=== PATIENT | female | born 1965 | race Caucasian/White ===

== ENCOUNTER 2022-08-16 09:01 | Outpatient (CLI) | payer OTHER, SELFPAY ==
[2022-08-16 12:45] LABS: Albumin* 4.6 g/dL (3.3-5.0); Chloride* 98 mmol/L (96-114)
[2022-08-16 12:46] LABS: Potassium* 4.1 mmol/L (3.6-5.1); Sodium* 135 mmol/L (135-149)
[2022-08-16 12:48] LABS: Bilirubin Total* 0.8 mg/dL (0.1-1.5); Carbon Dioxide* 26 mmol/L (20-32); Cholesterol* 169 mg/dL (90-199); Creatinine* 0.7 mg/dL (0.5-1.5); Estimated Glomerular Filt Rate 100 ml/min
[2022-08-16 12:49] LABS: Alanine Aminotransferase* 43 U/L (4-35); Alkaline Phosphatase* 79 U/L (40-150); Aspartate Amino Transferase* 46 U/L (12-35); Blood Urea Nitrogen* 19 mg/dL (7-30); Calcium* 9.8 mg/dL (8.4-10.6); Glucose* 288 mg/dL (60-115); HDL Cholesterol* 51 mg/dL (>=50); LDL Cholesterol Calculated 95 mg/dL (<100); Triglycerides* 116 mg/dL (40-149)
[2022-08-16 12:54] LABS: Creatinine Urine 108.1 mg/dL
[2022-08-16 12:59] LABS: Microalbumin Creatinine Ratio 0 mg/g (0-30); Microalbumin Urine < 1 mg/dL
== END 2022-08-16 09:02 | disposition home or self-care (01) ==
PROVIDERS: PCP Physician Assistant Medical; Visit Provider Physician Assistant Medical
DX: Z01.419 Encounter for gynecological examination (general) (routine) without abnormal findings (principal); E11.9 Type 2 diabetes mellitus without complications; I10 Essential (primary) hypertension; E78.5 Hyperlipidemia, unspecified; Z13.29 Encounter for screening for other suspected endocrine disorder
CPT/HCPCS: 80053; 80061; 82043; 82570; 84443; 87624; 88175

== ENCOUNTER 2022-11-22 08:08 | Outpatient (CLI) | payer OTHER, SELFPAY ==
[2022-11-22 14:06] LABS: Cholesterol* 187 mg/dL (90-199)
[2022-11-22 14:07] LABS: HDL Cholesterol* 53 mg/dL (>=50); LDL Cholesterol Calculated 104 mg/dL (<100); Triglycerides* 151 mg/dL (40-149)
== END 2022-11-22 08:09 | disposition home or self-care (01) ==
LOC: LKVREF 08:09
PROVIDERS: PCP Physician Assistant Medical; Visit Provider Physician Assistant Medical
DX: E11.9 Type 2 diabetes mellitus without complications (principal); E78.5 Hyperlipidemia, unspecified
CPT/HCPCS: 80061

== ENCOUNTER 2023-03-08 08:15 | Outpatient (CLI) | payer OTHER, SELFPAY | END 2023-03-08 08:16 | disposition home or self-care (01) | PROVIDERS: PCP Physician Assistant Medical; Visit Provider Physician Assistant Medical | DX: E11.9 Type 2 diabetes mellitus without complications (principal); E78.5 Hyperlipidemia, unspecified; I10 Essential (primary) hypertension | CPT/HCPCS: 80053; 80061 ==

== ENCOUNTER 2023-09-05 10:00 | Outpatient (CLI) | payer OTHER, SELFPAY | END 2023-09-05 10:01 | disposition home or self-care (01) | LOC: NFLDREF 09-07 12:03 | PROVIDERS: PCP Physician Assistant Medical; Referring Provider Physician Assistant Medical; Visit Provider Physician Assistant Medical | DX: Z00.00 Encounter for general adult medical examination without abnormal findings (principal); E11.9 Type 2 diabetes mellitus without complications; E78.5 Hyperlipidemia, unspecified; I10 Essential (primary) hypertension; M24.542 Contracture, left hand | CPT/HCPCS: 80053; 80061; 82043; 82570 ==

== ENCOUNTER 2024-08-21 07:53 | Outpatient (CLI) | payer OTHER, SELFPAY | END 2024-08-21 07:54 | disposition home or self-care (01) | PROVIDERS: PCP Physician Assistant Medical; Visit Provider Physician Assistant Medical | DX: E66.9 Obesity, unspecified (principal); E11.9 Type 2 diabetes mellitus without complications; E78.5 Hyperlipidemia, unspecified; I10 Essential (primary) hypertension | CPT/HCPCS: 80053; 80061; 82043; 82570; 82607; 84443 ==